=== PATIENT | male | born 1945 | race Caucasian/White ===

== ENCOUNTER → 2016-08-28 | Outpatient (CLI) | payer MEDICARE, BC | LOC: LFPA 15:08 | DX: T68.XXXA Hypothermia, initial encounter (principal); D72.829 Elevated white blood cell count, unspecified ==

== ENCOUNTER → 2016-08-28 | Outpatient (CLI) | payer MEDICARE, BC | END | disposition disaster alternative care site (69) | LOC: GRAD 16:59 | DX: R41.82 Altered mental status, unspecified (principal) ==